=== PATIENT | female | born 1985 | race Caucasian/White ===

== ENCOUNTER → 2021-10-17 14:36 | Outpatient (CLI) | payer OTHER, SELFPAY ==
[2021-10-17 20:58] LABS: Urine N gonorrhoeae NOT DETECTED
[2021-10-17 21:03] LABS: Urine Chlamydia NOT DETECTED
== END ==
PROVIDERS: Visit Provider Obstetrics & Gynecology
DX: Z34.81 Encounter for supervision of other normal pregnancy, first trimester (principal)
CPT/HCPCS: 87491; 87591

== ENCOUNTER → 2021-10-17 15:14 | Outpatient (CLI) | payer OTHER, SELFPAY ==
[2021-10-17 16:37] LABS: Add Manual Diff / Slide Review NO; Basophils Absolute Auto 100 /uL (0-100); Basophils Percent Auto 0.7 % (0-2); Eosinophils Absolute Auto 200 /uL (0-450); Eosinophils Percent Auto 1.5 % (2-4); Hematocrit 43.1 % (36-46); Hemoglobin 14.8 g/dL (12.0-16.0); Lymphocytes Absolute Auto 2700 /uL (1100-4500); Lymphocytes Percent Auto 18.4 % (25-40); Mean Corpuscular HGB Conc 34.3 % (30-36); Mean Corpuscular Hemoglobin 29.8 PG (26-34); Mean Corpuscular Volume 86.9 fL (80-100); Monocytes Absolute Auto 800 /uL (0-900); Monocytes Percent Auto 5.8 % (3-14); Neutrophils Absolute Auto 10700 /uL (1500-7000); Neutrophils Percent Auto 73.6 % (50-75); Platelet Count 327 X10^3/uL (150-400); Red Blood Cell Count 4.97 X10^6/uL (4.0-5.2); Red Cell Distribution Width 13.2 % (11.6-14.8); White Blood Cell Count 14.6 X10^3/uL (4.5-11.0)
[2021-10-17 17:15] LABS: Hepatitis B Surface Antigen NEGATIVE s/c (NEGATIVE); Rubella Antibody IgG 7.6 IU/mL (>15)
[2021-10-17 17:31] LABS: HIV 1 & 2 Ab/Ag 4th Gen Combo NEGATIVE (NEGATIVE); Hep C Virus Ab w/Reflex Quant NEGATIVE s/c (NEGATIVE)
[2021-10-18 04:51] LABS: RPR Screen Non Reactive (Non Reactive)
[2021-10-18 07:36] LABS: Varicella IgG Antibody 2206 index (Immune >165)
== END ==
PROVIDERS: Referring Provider Obstetrics & Gynecology; Visit Provider Obstetrics & Gynecology
DX: Z34.81 Encounter for supervision of other normal pregnancy, first trimester (principal)
CPT/HCPCS: 36415; 80055; 86787; 86803; 86850; 86900; 86901; 87389; 87491; 87591

== ENCOUNTER → 2021-12-13 16:57 | Outpatient (CLI) | payer OTHER, SELFPAY ==
[2021-12-13 20:34] LABS: Appearance Urine UA CLEAR; Bilirubin Urine UA NEGATIVE (NEGATIVE); Color Urine UA YELLOW; Glucose Urine UA NEGATIVE (Negative); Ketones Urine UA NEGATIVE (NEGATIVE); Leukocyte Esterase Urine UA TRACE (NEGATIVE); Nitrite Urine UA NEGATIVE (Negative); Occult Blood Urine UA NEGATIVE (Negative); Protein Urine UA NEGATIVE (Negative); Urobilinogen Urine UA 0.2 E.U./dL (0.2)
[2021-12-13 20:44] LABS: Bacteria Urine Moderate (10-30); RBC Urine None Seen (0-5/HPF); Squamous Epithelial Cell Urine 0-1 /HPF (0-5/HPF); WBC Urine 1-5/HPF (0-5/HPF)
[2021-12-16 21:10] LABS: AFP Value 53.4 ng/mL (.); Gest Age on Col Date 18.6 weeks (.); Insulin Dep Diabetes No (.); OSBR Risk 1IN 5251 (.); Results Report (.); Test Results *Screen Negative* (.)
== END ==
PROVIDERS: PCP Family Medicine; Referring Provider Obstetrics & Gynecology; Visit Provider Obstetrics & Gynecology
DX: Z34.82 Encounter for supervision of other normal pregnancy, second trimester (principal); Z36.0 Encounter for antenatal screening for chromosomal anomalies; Z3A.18 18 weeks gestation of pregnancy
CPT/HCPCS: 36415; 81003; 81015; 82105; 87086

== ENCOUNTER → 2022-01-02 14:36 | Outpatient (CLI) | payer OTHER, SELFPAY ==
--- NOTE | 2022-01-02 14:37 | DI.US.S_ITS ---
PROCEDURE: US OB >= 14 WEEKS FETUS INDICATIONS: 20 Week Anatomy Scan OUTSIDE/PRIOR DATING DATA: Last menstrual period (LMP): 08/05/2021 LMP-based estimated date of delivery (TYLER): 05/12/2022 First dating scan (date and location): 10/17/2021 Estimated date of delivery (TYLER) from first dating scan: 05/14/2022 TECHNIQUE: Real-time scanning was performed of the fetus, with image documentation and biometric measurements. COMPARISON: [facility], , US OB >= 14 WEEKS FETUS, 11/14/2021, 13:52. FINDINGS: General: A single living intrauterine gestation is present. Presentation: Breech Placenta: Anterior, without previa. Amniotic fluid index: 10 heart rate: 155 beats per minute Maternal cervical canal: 4.1 centimeters biometrics: Biparietal diameter: 5 centimeters Head circumference: 19 centimeters Abdominal circumference: 16.1 centimeters Femur length: 3.5 centimeters Clinically estimated gestational age: 21 weeks and 1 day Composite gestational age from present scan: 22 weeks and 2 days Estimated weight and percentile: 404 grams, at the 46 percentile Anatomic survey: Neuro: Ventricles are non-dilated at less than 10 mm. Cisterna magna is normal at 3-11 mm. Cerebellum is normal in size and morphology. Nuchal skin fold: Normal at less than 6 mm between 14-21 weeks gestational age. Face: Nose and lips, facial profile are normal. Spine: No evidence for spina bifida. Heart: Not well seen. Diaphragm: Diaphragm is intact. Stomach: Left-sided stomach is present. Kidneys: No hydronephrosis. Normal is less than 5 mm in 2nd trimester, less than 7 mm in 3rd trimester. Cord: 3-vessel cord has orthotopic insertion. Bladder: Normal in size. Extremities: All 4 extremities identified. IMPRESSION: Intrauterine with estimated gestational age of 21 weeks and 1 day. Sonographic biometry is concordant. EFW is at the 46 percentile Heart structures are not well seen. Consider follow-up ultrasound to reassess in 2-3 weeks. We strive to produce accurate, complete, and clear reports of imaging services. To assist us in improving patient care, this report was composed using standard report templates and voice recognition software. Therefore, it may contain abnormal punctuation, insertions and/or omissions. Occasional wrong-word or sound-alike substitutions may occur. Though we review the report and make efforts to correct it, we do recommend that the report be read carefully in proper context to recognize any text inaccuracies. Dictated by: Kulwant Almeida M.D. on 01/03/2022 at 8:53 Approved by: Kulwant Almeida M.D. on 01/03/2022 at 9:05
== END ==
PROVIDERS: PCP Family Medicine; Referring Provider Obstetrics & Gynecology; Visit Provider Obstetrics & Gynecology
DX: Z34.82 Encounter for supervision of other normal pregnancy, second trimester (principal); Z3A.21 21 weeks gestation of pregnancy
CPT/HCPCS: 76811

== ENCOUNTER → 2022-01-19 17:09 | Outpatient (CLI) | payer OTHER, SELFPAY ==
--- NOTE | 2022-01-19 17:12 | DI.US.S_ITS ---
PROCEDURE: US OB FOLLOW UP INDICATIONS: Cardiac views to finish anatomy ultrasound OUTSIDE/PRIOR DATING DATA: Last menstrual period (LMP): 08/05/2021. LMP-based estimated date of delivery (TYLER): 05/12/2022. First dating scan (date and location): 10/17/2021. Estimated date of delivery (TYLER) from first dating scan: 05/14/2022. TECHNIQUE: Real-time scanning was performed of the fetus, with image documentation and biometric measurements. Endovaginal scanning: Multiple formed. COMPARISON: [facility], OB >= 14 WEEKS FETUS, 01/02/2022, 15:21. [facility], OB >= 14 WEEKS FETUS, 11/14/2021, 13:52. [facility], OB <= 14 WEEKS FETUS, 10/17/2021, 15:05. FINDINGS: General: A single living intrauterine gestation is present. Presentation: Breech. Placenta: Placental position is anterior , without previa. Amniotic fluid index: 14.1 cm, normal range is 5-24 cm. Single deepest vertical pocket is 4.9 cm. heart rate: 153 beats per minute. Maternal cervical canal: 3.8 cm long. Normal lower limit is 2.5 cm. biometrics: Not performed Clinically estimated gestational age: 23 weeks 6 days Anatomic survey: Four-chamber heart and ventricular outflow tracts are grossly normal although somewhat difficult to scan. IMPRESSION: 1. A single living intrauterine gestation redemonstrated. 2. heart appears grossly normal although somewhat difficult to scan. We strive to produce accurate, complete, and clear reports of imaging services. To assist us in improving patient care, this report was composed using standard report templates and voice recognition software. Therefore, it may contain abnormal punctuation, insertions and/or omissions. Occasional wrong-word or sound-alike substitutions may occur. Though we review the report and make efforts to correct it, we do recommend that the report be read carefully in proper context to recognize any text inaccuracies. Dictated by: Zuleima Monaco M.D. on 01/20/2022 at 10:56 Approved by: Zuleima Monaco M.D. on 01/20/2022 at 11:05
== END ==
PROVIDERS: PCP Family Medicine; Referring Provider Obstetrics & Gynecology; Visit Provider Obstetrics & Gynecology
DX: Z36.2 Encounter for other antenatal screening follow-up (principal)
CPT/HCPCS: 76816

== ENCOUNTER → 2022-02-14 09:03 | Outpatient (CLI) | payer OTHER, SELFPAY ==
[2022-02-14 11:15] LABS: Hematocrit 37.9 % (36-46); Hemoglobin 12.7 g/dL (12.0-16.0)
[2022-02-14 11:24] LABS: GTT (PREG) 1 Hour PP 50gm Dose 123 mg/dL (76-139)
== END ==
PROVIDERS: PCP Family Medicine; Referring Provider Obstetrics & Gynecology; Visit Provider Obstetrics & Gynecology
DX: Z34.82 Encounter for supervision of other normal pregnancy, second trimester (principal); Z3A.26 26 weeks gestation of pregnancy
CPT/HCPCS: 36415; 82950; 85014; 85018

== ENCOUNTER → 2022-03-07 16:44 | Outpatient (CLI) | payer OTHER, SELFPAY ==
--- NOTE | 2022-03-07 16:45 | DI.US.S_ITS ---
PROCEDURE: US OB LIMITED INDICATIONS: OB Growth OUTSIDE/PRIOR DATING DATA: Last menstrual period (LMP): 08/05/2021. LMP-based estimated date of delivery (TYLER): 05/12/2022. First dating scan (date and location): 10/17/2021. Estimated date of delivery (TYLER) from first dating scan: 05/14/2022. The calculations are made using the 05/12/2022 TYLER. TECHNIQUE: Real-time scanning was performed of the fetus, with image documentation. Endovaginal scanning: Not performed COMPARISON: None. FINDINGS: A single living intrauterine gestation is present. Presentation: [place] breech. Placenta: Placental position is anterior, without previa. Amniotic fluid index: 15 cm, normal range is 5-24 cm). Single deepest vertical pocket is 5.7 cm. heart rate: 143 beats per minute. Maternal cervical canal: 5.6 cm long. Normal lower limit is 2.5 cm. Clinically estimated gestational age: 30 weeks for days. Estimated gestational age from initial scan: 30 weeks 3 days. Estimated weight 1430 g, 13th percentile IMPRESSION: Single living intrauterine gestation with normal estimated weight and normal YARIEL. Four-chamber cardiac anatomy could not be confirmed. A repeat sonographic exam could be considered. Dictated by: Tha Orozco M.D. on 03/08/2022 at 16:04 Approved by: Tha Orozco M.D. on 03/08/2022 at 16:08
== END ==
PROVIDERS: PCP Family Medicine; Referring Provider Obstetrics & Gynecology; Visit Provider Obstetrics & Gynecology
DX: O09.523 Supervision of elderly multigravida, third trimester (principal); Z3A.30 30 weeks gestation of pregnancy
CPT/HCPCS: 76815

== ENCOUNTER → 2022-04-03 15:52 | Outpatient (CLI) | payer OTHER, SELFPAY ==
--- NOTE | 2022-04-03 15:53 | DI.US.S_ITS ---
PROCEDURE: US OB LIMITED INDICATIONS: re-check growth/YARIEL OUTSIDE/PRIOR DATING DATA: Last menstrual period (LMP): 08/05/2021 LMP-based estimated date of delivery (TYLER): 05/12/2022. First dating scan (date and location): 10/17/2021. Estimated date of delivery (TYLER) from first dating scan: 05/14/2022. Working TYLER is 05/12/2022 TECHNIQUE: Real-time scanning was performed of the fetus, with image documentation and biometric measurements. COMPARISON: [facility], OB LIMITED, 03/07/2022, 17:04. FINDINGS: General: A single living intrauterine gestation is present. Presentation: Vertex. Placenta: Placental position is anterior, without previa. Amniotic fluid index: 10.2 cm, normal range is 5-24 cm. Single deepest vertical pocket is 5.1 cm. heart rate: 163 beats per minute. Maternal cervical canal: 3.4 cm long. Normal lower limit is 2.5 cm. biometrics: Biparietal diameter: 35 weeks Head circumference: 35 weeks 6 days Abdominal circumference: 33 weeks 3 days Femur length: 33 weeks 4 days Clinically estimated gestational age: 34 weeks 3 days Composite gestational age from present scan: 34 weeks 3 days Estimated weight and percentile: 284 g; 29th percentile Other: Not applicable. IMPRESSION: Single living IUP redemonstrated and interval growth is normal. We strive to produce accurate, complete, and clear reports of imaging services. To assist us in improving patient care, this report was composed using standard report templates and voice recognition software. Therefore, it may contain abnormal punctuation, insertions and/or omissions. Occasional wrong-word or sound-alike substitutions may occur. Though we review the report and make efforts to correct it, we do recommend that the report be read carefully in proper context to recognize any text inaccuracies. Dictated by: Wilfred PARRY Interpreted: Larry Nicolas MD on 04/03/2022 at 16:37 Transcribed by: MICK on 04/03/2022 at 16:39 Approved by: Larry Nicolas M.D. on 04/03/2022 at 20:04
== END ==
PROVIDERS: PCP Family Medicine; Referring Provider Obstetrics & Gynecology; Visit Provider Obstetrics & Gynecology
DX: O36.5930 Maternal care for other known or suspected poor fetal growth, third trimester, not applicable or unspecified (principal); Z3A.34 34 weeks gestation of pregnancy
CPT/HCPCS: 76815

== ENCOUNTER 2022-04-19 13:17 | Outpatient (CLI) | payer OTHER, SELFPAY | END 2022-04-19 14:55 | disposition home or self-care (01) | LOC: LABOR 14:40 → OB 05-01 07:49 | PROVIDERS: PCP Family Medicine; Referring Provider Obstetrics & Gynecology; Visit Provider Obstetrics & Gynecology | DX: O09.523 Supervision of elderly multigravida, third trimester (principal); Z3A.36 36 weeks gestation of pregnancy; Z34.83 Encounter for supervision of other normal pregnancy, third trimester | CPT/HCPCS: 59025; 87653; G0378; G0379 ==

== ENCOUNTER → 2022-04-19 15:52 | Outpatient (CLI) | payer OTHER, SELFPAY ==
[2022-04-20 19:22] LABS: Strep Grp B PCR NEG for Grp B Strep
== END ==
PROVIDERS: PCP Family Medicine; Visit Provider Obstetrics & Gynecology
DX: Z34.83 Encounter for supervision of other normal pregnancy, third trimester (principal); Z3A.36 36 weeks gestation of pregnancy
CPT/HCPCS: 87653

== ENCOUNTER 2022-04-26 15:40 | Outpatient (CLI) | payer OTHER, SELFPAY ==
--- NOTE | 2022-04-26 17:36 | P.TNLD_ITS ---
Visit Information Visit Information Date of evaluation: 04/26/22 Primary OB Provider: Usha Bishop On-call OB Provider: Elva Peña Reason for Evaluation: Yes non-stress test non-stress test reason: other (AMA) Comments/Additional reasons for admission: 36yo at 37w5d here for NST for AMA. [facility] Medical History (Updated 04/26/22 @ 17:38 by Elva Peña MD) Abnormal Pap smear of cervix (~2008) Anxiety Chicken pox Chronic back pain (~1999) Chronic pain CRPS (complex regional pain syndrome) (~1998) Depression Foot pain Frequent UTI (~2003) Heavy menstrual period (~1996) Human papilloma virus (~2014) Painful menstrual periods (~1996) Pelvic pain Surgical History (Updated 10/15/21 @ 22:43 by Vickie Nguyen) Anesthesia History of knee surgery (~12/09/98) Spinal cord stimulator status [place] teeth extracted Family History (Updated 10/15/21 @ 22:47 by Vickie Nguyen) Family/Other Thalassemia Family/Other Factor V Leiden Father Skin cancer Hyperlipidemia Grandmother Skin cancer Brain cancer Dementia Grandfather Skin cancer Grandmother Diabetes mellitus Skin cancer Dementia Grandfather Skin cancer Coronary artery disease Family/Other Breast cancer Mother Depression Anxiety Mental health problem Brother Depression Anxiety Mental health problem Social History marital status: number of children: 1 household members: spouse and children lives independently: Yes housing: house pets and animals: Yes (2 dogs) education level: college (some college) occupational status: unemployed current occupational exposures/hazards: No special octavio needs: No travel history: over 6 months ago seatbelt use: always water heater temp set < 120 deg: Yes working smoke detector in home: Yes fire extinguisher in home: Yes carbon monox detector in home: Yes firearms in home: No do you feel safe at home: Yes Smoking Status: Former smoker Tobacco: How many years used: 6 (Quit in 2010) second hand exposure: No alcohol intake: former substance use type: marijuana (previous use in early 20s, no longer) during the past year weight has: increased > 10 lbs well-balanced diet: about half the time daily servings fruits/ve-4 caffeine: Yes Type(s) of exercise: walking frequency: 1-2 times per week additional social history: Pt reports that she cannot tolerate iron supplementation and that at baseline her iron levels tend to be high. +family Hx of thalassemia requiring phlebotomy. Evaluation Evaluation Baseline heart rate: 130 Variability: Moderate (11-25) monitor accelerations: Present Monitor Decelerations: Absent Category of Tracing: Reactive Diagnosis, Plan/Disposition Final Diagnosis (1) 37 weeks gestation of : Status: Acute (2) AMA (advanced maternal age) multigravida 35+: Status: Acute Plan/Disposition Plan: at 37w5d here for NST for AMA. NST reactive. Continue weekly testing. OB Disposition: home
== END 2022-04-26 16:40 | disposition home or self-care (01) ==
LOC: OB 05-30 09:56
PROVIDERS: PCP Family Medicine; Referring Provider Obstetrics & Gynecology; Visit Provider Obstetrics & Gynecology
DX: O09.523 Supervision of elderly multigravida, third trimester (principal); Z3A.37 37 weeks gestation of pregnancy
CPT/HCPCS: 59025; G0378; G0379

== ENCOUNTER 2022-05-01 12:35 | Outpatient (CLI) | payer OTHER, SELFPAY | END 2022-05-01 13:25 | disposition home or self-care (01) | LOC: OB 05-03 08:16 | PROVIDERS: PCP Family Medicine; Referring Provider Obstetrics & Gynecology; Visit Provider Obstetrics & Gynecology | DX: O09.523 Supervision of elderly multigravida, third trimester (principal); Z3A.38 38 weeks gestation of pregnancy | CPT/HCPCS: 59025; G0378; G0379 ==

== ENCOUNTER 2022-05-08 10:39 | Outpatient (CLI) | payer OTHER, SELFPAY | END 2022-05-08 11:19 | disposition home or self-care (01) | LOC: OB 05-09 15:01 | PROVIDERS: PCP Family Medicine; Referring Provider Obstetrics & Gynecology; Visit Provider Obstetrics & Gynecology | DX: O09.523 Supervision of elderly multigravida, third trimester (principal); Z3A.39 39 weeks gestation of pregnancy | CPT/HCPCS: 59025; G0378; G0379 ==

== ENCOUNTER 2022-05-16 11:58 | Outpatient (CLI) | payer OTHER, SELFPAY ==
--- NOTE | 2022-05-16 12:32 | PM.OBTRLD ---
Visit Information Visit Information Date of evaluation: 05/16/22 Primary OB Provider: Usha Bishop On-call OB Provider: Nishant Blanco Reason for Evaluation: Yes non-stress test Comments/Additional reasons for admission: 36 yo at 40+4 weeks EGA presenting for NST due to post-dates and AMA. Vital Signs Vital Signs: 106/70, P: 99, T: 36.1 [facility] Medical History (Updated 04/26/22 @ 17:38 by Elva Peña MD) Abnormal Pap smear of cervix (~2008) Anxiety Chicken pox Chronic back pain (~1999) Chronic pain CRPS (complex regional pain syndrome) (~1998) Depression Foot pain Frequent UTI (~2003) Heavy menstrual period (~1996) Human papilloma virus (~2014) Painful menstrual periods (~1996) Pelvic pain Surgical History (Updated 10/15/21 @ 22:43 by Vickie Nguyen) Anesthesia History of knee surgery (~12/09/98) Spinal cord stimulator status [place] teeth extracted Family History (Updated 10/15/21 @ 22:47 by Vickie Nguyen) Family/Other Thalassemia Family/Other Factor V Leiden Father Skin cancer Hyperlipidemia Grandmother Skin cancer Brain cancer Dementia Grandfather Skin cancer Grandmother Diabetes mellitus Skin cancer Dementia Grandfather Skin cancer Coronary artery disease Family/Other Breast cancer Mother Depression Anxiety Mental health problem Brother Depression Anxiety Mental health problem Social History marital status: number of children: 1 household members: spouse and children lives independently: Yes housing: house pets and animals: Yes (2 dogs) education level: college (some college) occupational status: unemployed current occupational exposures/hazards: No special octavio needs: No travel history: over 6 months ago seatbelt use: always water heater temp set < 120 deg: Yes working smoke detector in home: Yes fire extinguisher in home: Yes carbon monox detector in home: Yes firearms in home: No do you feel safe at home: Yes Smoking Status: Former smoker Tobacco: How many years used: 6 (Quit in 2010) second hand exposure: No alcohol intake: former substance use type: marijuana (previous use in early 20s, no longer) during the past year weight has: increased > 10 lbs well-balanced diet: about half the time daily servings fruits/ve-4 caffeine: Yes Type(s) of exercise: walking frequency: 1-2 times per week additional social history: Pt reports that she cannot tolerate iron supplementation and that at baseline her iron levels tend to be high. +family Hx of thalassemia requiring phlebotomy. Evaluation Evaluation Baseline heart rate: 125 Variability: Moderate (11-25) monitor accelerations: Present Monitor Decelerations: Absent Category of Tracing: Reactive Status: Category l Diagnosis, Plan/Disposition Plan/Disposition Plan: Continued care and surveillance as planned by Dr. Bishop. OB Disposition: home
== END 2022-05-16 12:37 | disposition home or self-care (01) ==
LOC: OB 05-25 16:18
PROVIDERS: PCP Family Medicine; Referring Provider Obstetrics & Gynecology; Visit Provider Obstetrics & Gynecology
DX: O48.0 Post-term pregnancy (principal); O09.523 Supervision of elderly multigravida, third trimester; Z3A.40 40 weeks gestation of pregnancy
CPT/HCPCS: 59025; G0378; G0379

== ENCOUNTER 2022-05-18 11:00 | Outpatient (CLI) | payer OTHER, SELFPAY | END 2022-05-18 11:45 | disposition home or self-care (01) | LOC: LABOR 12:11 → OB 05-25 16:15 | PROVIDERS: PCP Family Medicine; Referring Provider Obstetrics & Gynecology; Visit Provider Obstetrics & Gynecology | DX: Z03.71 Encounter for suspected problem with amniotic cavity and membrane ruled out (principal); O48.0 Post-term pregnancy; O09.523 Supervision of elderly multigravida, third trimester; Z3A.40 40 weeks gestation of pregnancy | CPT/HCPCS: 59025; 84112; G0378; G0379 ==

== ENCOUNTER 2022-05-21 17:36 | Inpatient (IN) | payer OTHER, SELFPAY ==
--- NOTE | 2022-05-21 18:46 | P.HPOB_ITS ---
OB HPI Date/Time Date of admission: 05/21/22 Date Patient Seen: 05/21/22 Time Patient Seen: 19:30 History of Present Condition Chief complaint: Induction TYLER Calculator Estimated Delivery Date Method Current WG Current Estimate 05/12/22 LMP (Certain) 41w 2d Other Estimates 05/14/22 Ultrasound #1 41w 0d Estimated Gestational Age (weeks): 41 : 2 Para: 1 Narrative: 36 yo being admitted for induction of labor due to post dates, 41+ weeks. Her has been uncomplicated. She had weekly nonstress tests from 36 weeks onward due to AMA. Office US @ 38 weeks, EFW 44%, 7lb2oz, YARIEL 20. care: good care Dating criteria OB: LMP confirmed by 1st trimester US Ultrasounds: normal 1st trimester US and normal mid trimester US Obstetrical complications: none Medical complications OB: none Indications Indication for induction OB: post dates Preadmission Labs Last OB Lab Results: Blood Type A Positive 05/21/22 18:40 Antibody Screen Negative 05/21/22 18:40 Hematocrit 38.9 % (36-46) 05/21/22 18:40 Hemoglobin 12.8 g/dL (12.0-16.0) 05/21/22 18:40 Hepatitis B Surface Antigen Negative s/c (NEGATIVE) 10/17/21 15 :17 Hepatitis C Antibody Negative s/c (NEGATIVE) 10/17/21 15:17 Rubella Antibody 7.6 IU/mL (>15) L 10/17/21 15:17 Varicella-Zoster IgG Antibody 2206 index (Immune >165) 10/17/21 15:17 Glucose 1 Hour 123 mg/dL (76-139) 02/14/22 10:39 Group B Streptococcus (PCR) Neg for grp b strep 04/19/22 15:52 -: Chlamydia screen: negative and Gonorrhea screen: negative Genetic Screens: Alpha-fetoprotein: Normal (and normal cell free DNA) Prior (ies) Past Pregnancies Del. Date GA/Weeks Labor Lgth Wt Sex Route Outcome Anesthesia Place Delv Breastfeed Preg Comp Name 02/26/13 5 elective 10/26/17 41 6 lb 13 oz Female vaginal live - full term [place] 2 years none [place] Delivery Date: 10/26/17 Last Updated by: Patricia Arnulfo, R.N. appears to have been misdated based on condition at delivery, covered in vernix, not even 7 lb. Retained placenta required manual extraction Evaluation Evaluation Baseline heart rate: 135 Variability: Moderate (11-25) monitor accelerations: Present Monitor Decelerations: Absent Category of Tracing: Reactive Status: Category l Dilation (cm): 0 Effacement (%): 40 Comments: On speculum exam to place a transcervical Stevenson balloon for cervical ripening, heavy thick yellow discharge noted, appearing consistent with yeast. Wet prep performed which showed hyphae consistent with yeast. No clue cells. No Trichomonas. Stevenson balloon deferred due to yeast [facility] Medical History Abnormal Pap smear of cervix (~2008) Anxiety Chicken pox Chronic back pain (~1999) Chronic pain CRPS (complex regional pain syndrome) (~1998) Depression Foot pain Frequent UTI (~2003) Heavy menstrual period (~1996) Human papilloma virus (~2014) Painful menstrual periods (~1996) Pelvic pain Surgical History Anesthesia History of knee surgery (~12/09/98) Spinal cord stimulator status [place] teeth extracted Family History (Updated 10/15/21 @ 22:47 by Vickie Nguyen) Family/Other Thalassemia Family/Other Factor V Leiden Father Skin cancer Hyperlipidemia Grandmother Skin cancer Brain cancer Dementia Grandfather Skin cancer Grandmother Diabetes mellitus Skin cancer Dementia Grandfather Skin cancer Coronary artery disease Family/Other Breast cancer Mother Depression Anxiety Mental health problem Brother Depression Anxiety Mental health problem Social History marital status: number of children: 1 household members: spouse and children lives independently: Yes housing: house pets and animals: Yes (2 dogs) education level: college (some college) occupational status: unemployed current occupational exposures/hazards: No special octavio needs: No travel history: over 6 months ago seatbelt use: always water heater temp set < 120 deg: Yes working smoke detector in home: Yes fire extinguisher in home: Yes carbon monox detector in home: Yes firearms in home: No do you feel safe at home: Yes Smoking Status: Never smoker Tobacco: How many years used: 6 (Quit in 2010) second hand exposure: No alcohol intake: former substance use type: marijuana (previous use in early 20s, no longer) during the past year weight has: increased > 10 lbs well-balanced diet: about half the time daily servings fruits/ve-4 caffeine: Yes Type(s) of exercise: walking frequency: 1-2 times per week additional social history: Pt reports that she cannot tolerate iron supplementation and that at baseline her iron levels tend to be high. +family Hx of thalassemia requiring phlebotomy. Meds Home Medications and Allergies Home Medications Medication Instructions Recorded Confirmed Type PNV [id number] PO 10/17/21 05/10/22 History [ Gummies(zinc chelate)] Allergies Allergy/AdvReac Type Severity Reaction Status Date / Time doxycycline AdvReac Intermediate Diarrhea Verified 05/10/22 08:19 fluoxetine AdvReac Mild Headache Verified 05/10/22 08:19 venlafaxine AdvReac Mild Headache Verified 05/10/22 08:19 OB Exam Narrative Exam Narrative: Vital signs: Temp 36.3F BP 118/77, Pulse 90 HENMT Head: normal to inspection, normocephalic and atraumatic Resp Effort & Inspection: normal respiratory effort and able to speak in complete sentences Cardio Rate: regular rate Extremities Lower extremity: Yes normal to inspection Presentation: vertex Estimated Weight (lbs): 7 Objective Labs Result Diagrams: 05/21/22 18:40 Assessment and Plan Assessment and Plan Assessment and Plan narrative: 36 yo 2 [id number] , IOL for postdates. GBS negative. -Admit - routine labs sent. -She preferred Stevenson balloon for cervical ripening since she had this with the last for post-dates induction. However on exam, heavy vaginal discharge noted which appeared consistent with yeast and wet prep confirmed yeast. Recommended against placing Stevenson balloon due to heavy yeast. Discussed options of Cervidil versus misoprostol, she opted for misoprostol and opted for oral administration. - Fluconazole 150 p.o. x1 for yeast vaginitis - misoprostol 50 mcg by mouth every 4 hours prn for cervical ripening Time Spent with Patient Total time spent with greater than 50% in coordination of care (as documented) at patient's floor/unit and/or counseling patient:: 25 - 35 minutes
[2022-05-21 19:19] VITALS: BP 118/77
[2022-05-21 20:18] LABS: Add Manual Diff / Slide Review NO; Basophils Absolute Auto 100 /uL (0-100); Basophils Percent Auto 0.6 % (0-2); Eosinophils Absolute Auto 100 /uL (0-450); Eosinophils Percent Auto 0.7 % (2-4); Hematocrit 38.9 % (36-46); Hemoglobin 12.8 g/dL (12.0-16.0); Lymphocytes Absolute Auto 2500 /uL (1100-4500); Lymphocytes Percent Auto 16.7 % (25-40); Mean Corpuscular Hemoglobin 27.8 PG (26-34); Mean Corpuscular Volume 84.5 fL (80-100); Monocytes Absolute Auto 800 /uL (0-900); Monocytes Percent Auto 5.2 % (3-14); Neutrophils Absolute Auto 11300 /uL (1500-7000); Neutrophils Percent Auto 76.8 % (50-75); Platelet Count 283 X10^3/uL (150-400); Red Blood Cell Count 4.61 X10^6/uL (4.0-5.2); Red Cell Distribution Width 14.9 % (11.6-14.8); White Blood Cell Count 14.8 X10^3/uL (4.5-11.0)
[2022-05-21 20:30] LABS: COVID19 -Nasal RAPID Negative (Negative)
[2022-05-21] MEDS: miSOPROStoL 100 MCG TABLET 50 MCG PO (20:58)
[2022-05-21] MEDS: FLUCONAZOLE 100 MG TABLET 150 MG PO (21:08)
--- NOTE | 2022-05-22 07:42 | PM.OBPNLAB ---
Date/Time Date Patient Seen: 05/22/22 Time Patient Seen: 07:43 Pain Control Comments: Comfortable. Only having infrequent contractions now. Received 1 dose of misoprostol 50 mcg orally last night for cervical ripening. A few hours after the misoprostol she developed contractions every 1.5-2 minutes, with subsequently spaced. She reports that she was mildly uncomfortable with the contractions. at that time. No LOF or VB. Pelvic Exam Dilation (cm): 4 Effacement (%): 60 station: -3 Amniotic membrane status: Intact Contractions Contractions on admission: none Contraction pattern: Irregular Contraction intensity: Mild Status status: Category l Heart Rate Baseline: 130 Monitor Accelerations: Present Monitor Decelerations: Absent Monitor Variability: Moderate Assessment and Plan Assessment: induction ongoing Plan: other (Begin Pitocin for IOL. Pt agrees to Pitocin)
[2022-05-22] MEDS: OXYTOCIN PREMIX 30 UNIT/500 ML PLAST..BAG IV (09:56)
[2022-05-22] MEDS: LACTATED RINGERS 1,000 ML 100 ML IV ×2 (12:29→21:51)
--- NOTE | 2022-05-22 14:29 | PM.OBPNLAB ---
Date/Time Date Patient Seen: 05/22/22 Time Patient Seen: 14:15 Pain Control Pain control: other (becoming uncomfortable now with contractions, desires her epidural) Pelvic Exam Dilation (cm): 4 Effacement (%): 60 station: -3 Amniotic membrane status: Intact Comments: cervical exam at 0740, not re-checked Contractions Pitocin rate (mU/min): 9 Contraction frequency (min): 2 Contraction pattern: Regular Contraction intensity: Moderate Status status: Category l Heart Rate Baseline: 130 Monitor Accelerations: Present Monitor Decelerations: Absent Monitor Variability: Moderate Assessment and Plan Assessment: active labor Plan: continuous present management Comments: for epidural now Wll turn Pitocin down to 7 milliunits while awaiting epidural and since recent contractions now every 1-2 minutes, Will re-check her cervix after the epidural
[2022-05-22] MEDS: FENT 2MCG/ML BUPIV 0.125% EPI 200 MCG/100 ML PLAST..BAG 8 MCG EPIDURAL (15:00)
--- NOTE | 2022-05-22 15:24 | PM.OBPNLAB ---
Date/Time Date Patient Seen: 05/22/22 Time Patient Seen: 15:24 Pain Control Pain control: epidural Comments: Pt is status post epidural but is still uncomfortable on her right side. She has a history of a spinal neuro modulator placed in her teens due to chronic back pain, later removed. With her epidural with her last she only had relief on the 1 side. Fairly uncomfortable with contractions however. Anesthesiologist was going to come recheck on her. She felt like she broke her water just prior to the epidural. Still has a pad on. Pelvic Exam Dilation (cm): 4 Effacement (%): 80 station: -3 Amniotic membrane status: Ruptured (SROM approx ) Contractions Contractions on admission: regular Pitocin rate (mU/min): 7 Contraction frequency (min): 2 Contraction pattern: Regular Contraction intensity: Moderate Status status: Category ll Heart Rate Baseline: 130 Monitor Accelerations: Non-Uniform Monitor Decelerations: Late Comments: Her pad is wet consistent with SROM. FHR pattern with 3 late decelerations, new onset. EFM had been Cat 1 Assessment and Plan Assessment: induction ongoing Plan: other Comments: s/p SROM. Contractions have become are too close, every 1-1/2-2 minutes. Will decrease Pitocin. Anesthesiologist is going to try to replace epidural.
--- NOTE | 2022-05-22 16:31 | PM.OBPNLAB ---
Pain Control Pain control: epidural (s/p second epidural, comfortable) Comments: patient status post 2nd epidural catheter placed with 1st one left in place. she has a bolus button for each of epidural, 1 covering her right side and 1 the left. She is now comfortable after the epidural. Pelvic Exam Effacement (%): 80 station: -3 Amniotic membrane status: Ruptured (SROM approx ) Contractions Contraction frequency (min): 2 Contraction pattern: Regular Contraction intensity: Moderate Status status: Category ll Comments: Pitocin turned off at 1530 due to uterine hyperstimulation, contractions every 1 to 1.5 minutes with resultant late decelerations. Decelerations had just resolved prior to epidural, but with sitting for the epidural she had some Severe decelerations 90-100. After the epidural now is placed left lateral and returned to baseline with initially some late decelerations which are currently resolved. FHR variability currently decreased. Will observe for recovery after resolution of the decelerations and observe for improvement in variability. contractions still every 2 to 2-1/2 minutes after Pitocin turned off. Assessment and Plan Assessment: induction ongoing Plan: other Comments: Pitocin turned off due to uterine hyperstimulation after SROM with late decelerations. Pitocin off for 1 hour and decelerations were improving. However now after the epidural some return of late decelerations, improved after position change. She is receiving IV fluid bolus. Will continue with the Pitocin off and observe FHR for return to reassuring category 2 EFM. Will plan to continue with Pitocin off for now even if FHR improved, due to frequent contractions and see how she progresses with the current contractions without Pitocin.
--- NOTE | 2022-05-22 21:10 | PM.OBPRVD ---
Events: Labor Induction (for postterm 41+ weeks) Labor & Delivery Delivery date: 05/22/22 Intrapartal Events: Deceleration Cervical ripening method: per misoprostal protocol (one dose of Misoprostil) Induction method: per pitocin protocol (Pitocin off for past 4 hours after SROM due to hyperstim then continued fequent contractions without Pitocin) Delivery augmentation: rupture of membranes (SROM) Delivery monitor: external FHT and external uterine Route of delivery: Episiotomy description: None L&D Laceration Description: Periurethral - 1st Degree (small abrasions) Quantitative Blood Loss: 200 Anesthesia Type: Epidural Complications: none Narrative: over an intact perineum. Pt pushed approximately 11 minutes. With pushing she developed a severe deceleration into a terminal bradycardia, but she quickly delivered the infant by spontaneous delivery. Description of Procedure: Pitocin was turned off due to hyperstimulation after spontaneous rupture membranes, with heart rate late decelerations, with improvement that decelerations, and then left off since she continued to contract every 2 minutes and subsequently had some recurrent late decelerations after her epidural improved initially with fluid bolus. She then had some intermittent mild variable decelerations and late decelerations, But overall reassuring category 2 EFM to follow. Pitocin continued to be off and cervix rechecked 3 hours later. On exam cervix was completely dilated, possible LOP position. With giving an intial push over 1 contraction to check pushing effectiveness and density of epidural, heart rate developed a prolonged deceleration to 90 to 100s, decreased from baseline 120. Pt placed in left lateral position, then right lateral position, with then increased back to 120, however with the next contraction heart rate decreased back to 90 to 100s. With placing patient in hand/knee position, heart rate increased back to 120 and stayed recovered in the 120s,for 20 minutes. OR placed on notice in case she developed a prolonged deceleration with pushing again. I discussed with the patient with pushing, if she developed a prolonged deceleration or recurrent severe decelerations, if not close to vaginal delivery then I would be recommending proceeding with section. I reviewed section procedure and surgical risks and she agreed, signed consent ahead of time in case needed. On repeat exam vertex was 1+ station. Patient begin pushing again in right lateral position. She pushed well over 2 contractions and was pushing the vertex down well, but between contractions felt to be 1+ station. heart rate decreased to 90 to 100s with the pushing, Without full recovery to baseline. She was placed on her back and on exam noted to be only 1+ station, possible LP position. With the next contraction however she did bring the vertex down to 3+ station. She was prepped and draped for delivery. With the next contraction she brought the vertex to and then had a spontaneous vaginal delivery over an intact perineum from the SYLVIA position. No nuchal cord was present. Anterior Shoulder did not deliver with ease with the patient pushing and mild traction. Suprapubic pressure was added and the shoulder then delivered without difficulty. Time from delivery of the head to delivery of the baby was approximately 1 minute. A baby boy was delivered and was placed on the maternal abdomen. With drying and some stimulation the baby became vigorous. After 3 minute, after cord stopped pulsating, the cord was clamped and cut. a segment of umbilical cord was clamped off and umbilical cord gases were collected. See the below listed values. Pitocin was started while awaiting delivery of the placenta. Placenta delivered spontaneously approximately 30 minutes later. The placenta was inspected and was noted to be intact with a three-vessel cord. She had minimal bleeding after delivery of the placenta. The uterus was noted to be firm. On palpating near the cervix only some minimal clot was noted, which was teased out, and no further clot was palpated. On inspection there were no lacerations. She only had some small midline to left periurethral abrasions which were hemostatic, not repaired and a 1cm abrasion at the posterior fourchette, inferior to the hymenal ring which was hemostatic. She did well was left to recover in stable condition. [place] Baby 1: Infant gender: Male Presentation: vertex Position: Left Occiput Anterior Placenta delivery description: Spontaneous Cord Vessel Description: 3 Vessels score (1 min): 8 score (5 min): 9 weight: 7 lb 14.634 oz Narrative: umbilical arterial cord gas: PH 7.319, pCO2 41.2, PO2 34, base excess -5, HC03 21.2 TCO2 22m [id number] 60% umbilical venous cord gas: PH 7.20, pCO2 59.7, PO2 16, base excess -5, HC03 23.4, TCO2 25, O2 saturation 15% Plan for aftercare: Routine care
[2022-05-22] MEDS: ACETAMINOPHEN 325 MG TABLET 650 MG PO (21:50)
[2022-05-22] MEDS: IBUPROFEN 600 MG TABLET PO (22:12)
[2022-05-23] MEDS: ACETAMINOPHEN 325 MG TABLET 650 MG PO ×2 (03:48→09:27)
[2022-05-23] MEDS: IBUPROFEN 600 MG TABLET PO ×2 (03:48→09:28)
[2022-05-23 11:49] VITALS: BP 94/56; PULSE 67; RESP 18; TEMP 36.7
[2022-05-23 11:57] VITALS: BP 94/56; PULSE 67; RESP 18; TEMP 36.7
--- NOTE | 2022-05-23 14:22 | PM.OBDS.1 ---
Discharge Providers Provider Date of admission: 05/21/22 17:36 Discharge Date: 05/23/22 Primary care physician: Jojo Luu MD Consults: 05/23/22 21:07 Consult to [facility] Routine Comment: Discharge provider: Usha Bishop MD Summary Hospital Course Date Patient Seen: 05/23/22 Time Patient Seen: 14:45 Diagnoses: 41+ week , delivered. Status post spontaneous vaginal delivery with mild shoulder dystocia. Hospital Course: Adwoa Parnell is a 36 yo G2 now P2 female Who was admitted at 41 weeks 2 days EGA for induction of labor due to post dates . She had had weekly nonstress test for testing in the late 3rd trimester due to age greater than 35. Her was uncomplicated. She underwent induction of labor with cervical ripening with 1 dose of oral misoprostol 50 mcg. She developed regular contractions which were mildly uncomfortable and cervix became favorable at 4 cm/60%. Contractions then became infrequent and mild. Pitocin was started for induction of labor. She progressed into labor. The Pitocin was turned off after she had spontaneous rupture membranes, due to frequency of uterine contractions and some late decelerations. She then continued in labor without further Pitocin. She progressed to completely dilated and had a spontaneous vaginal delivery. She had severe heart rate deceleration in the 2nd stage with pushing with a terminal bradycardia but was able to have a spontaneous vaginal delivery as she quickly delivered the baby within 11 minutes of pushing. Both patient and baby have done well and without complications. She had only light blood loss, less than average after her delivery and delivery of the placenta. She has had a normal course and will be discharge to home on day 1. Today on day 1 she reports lochia is light . She is without problems. She reports some mild uterine cramping only, nothing severe. She is voiding without problems but does note a little difficulty with bladder control, similar to her 1st . Discussed typically this will gradually improve some, but if has any persistent symptoms and consideration of referral for pelvic PT. she reports that her moods have been fine. She is doing well and desires discharge home today. Baby is doing well and is ready for discharge. Peripartum Data Infant Delivery Method: Natural Vaginal Laceration Description: Periurethral - 1st Degree Episiotomy description: None complications: none [place] 1: Gender: Male Disposition of : home Status at Discharge Cognitive/behavioral status at discharge: oriented Functional status at discharge: independent ambulation Overall status at discharge: patient is progressing back to baseline Time Spent with Patient Time attestation: Total time spent providing and/or coordinating discharge services: Time spent: Less than 30 minutes Objective Labs Result Diagrams: 05/21/22 18:40 Exam Vital Signs (past 8 hours): - 05/23/22 11:49 05/23/22 11:57 Temperature 98.1 F 98.1 F Pulse Rate 67 67 Respiratory Rate 18 18 Blood Pressure 94/56 L 94/56 L Narrative Exam Narrative: General: Well-appearing female Abdomen: Soft, nontender, nondistended. Fundus @ U-1, firm, nontender Extremities: Trace pedal edema Discharge Plan Discharge Plan Patient Disposition: Home Provider Discharge Comment: Congratulations on your new baby boy! You had a spontaneous vaginal delivery on 05/24/22 You may use [id number] Tylenol to supplement the ibuprofen for cramping. Call our office for any concerns or problems including for any persistent anxiety or depression. Please see attached instructions after vaginal . Discharge orders & Medications Prescriptions: New ibuprofen 600 mg Tablet 600 mg PO Q6HR PRN (Reason: Pain, Mild (1-3)) Qty: 50 0RF Continued PNV no.[id number] [ Gummies(zinc chelate)] PO Follow up/Referrals: Negar Last PA-C [[employer]] - (Postapartum appt w/ Negar Last PA: @ 11:15am) Discharge Health Status Multidrug resistant organism: No MDRO Diet/Activity/Treatments Diet: Regular Skin/Wound/Dressing Care Report to your healthcare provider any signs of infection, such as:: chills, fever, increased pain and unusual drainage Visit Report/Discharge Packet Instructions: DI for Labor and Delivery, Vaginal Discharge Data Primary Care Provider: Jojo Luu
[2022-05-23] MEDS: MEASLES,MUMPS,RUBELLA VACC/PF 0.5 ML VIAL SUBCUT (16:10)
== END 2022-05-23 16:20 | disposition home or self-care (01) | DRG 806 ==
PROVIDERS: Admitting Provider Obstetrics & Gynecology; PCP Family Medicine; Referring Provider Obstetrics & Gynecology; Visit Provider Obstetrics & Gynecology
DX: O48.0 Post-term pregnancy (principal); O98.82 Other maternal infectious and parasitic diseases complicating childbirth; Z37.0 Single live birth; O76 Abnormality in fetal heart rate and rhythm complicating labor and delivery; B37.31 Acute candidiasis of vulva and vagina; Z3A.41 41 weeks gestation of pregnancy; Z20.822 Contact with and (suspected) exposure to COVID-19
CPT/HCPCS: 36415; 59050; 59200; 59400; 85025; 86850; 86900; 86901; 87635; C9803; G0379; J2590